=== PATIENT | female | born 1995 | race Caucasian/White ===

== ENCOUNTER 2025-05-06 08:42 | Emergency (ER) | payer OTHER, SELFPAY ==
[2025-05-06] VITALS (7 sets, daily range): BP systolic 110–122; BP diastolic 66–80; PULSE 70–95; RESP 16–18; TEMP 36.7; O2SAT 98; BMI 26.6
--- NOTE | ~2025-05-06 | XR_ITS ---
EXAMINATION: XR RIBS, RIGHT CLINICAL INFORMATION: pain COMPARISON: None available. TECHNIQUE: 3 views of the right ribs were obtained. FINDINGS: Lungs are clear. No consolidation, pneumothorax, or pleural effusion. The cardiomediastinal silhouette and pulmonary vasculature are normal. There is a subtle fracture of the right lateral ninth rib. No additional fractures identified. XR/XR ribs RT min 3V w CXR1V IMPRESSION: Subtle fracture of the right lateral ninth rib. Electronically signed by: Dylan Garza MD 05/06/2025 09:47 AM EDT
--- NOTE | 2025-05-06 08:43 | ECG_ITS ---
Test Reason : CP Blood Pressure : */* mmHG Vent. Rate : 85 BPM Atrial Rate : 85 BPM P-R Int : 150 ms QRS Dur : 72 ms QT Int : 362 ms P-R-T Axes : 63 63 62 degrees QTcB Int : 430 ms Normal sinus rhythm Normal ECG No previous ECGs available Referred By: Generic ED Physician Electronically Signed By: Scott Goodman
--- NOTE | 2025-05-06 09:01 | ED_ITS ---
HPI - Chest Pain General Chief Complaint: Chest Pain Stated Complaint: CP, passed out t-1. Time Seen by Provider: 05/06/25 08:45 Source: patient and old records reviewed Mode of arrival: ambulatory Limitations: no limitations History of Present Illness ED Provider: ESE COMBS narrative: 29 yo female with no PMH other than she notes about a year ago she passed out but did fine after. Yesterday she was with her brother having a normal conversation she started to feel sweaty and weird like she would pass out. She tried to get up but then ended up syncopizing. He caught her. She did not have shaking movements, no incontinence and no tongue biting. She notes it took her a bit to wake up. She has no hx of seizures. She notes since then she feels a kind if slight pain in the R chest. She has no n/v/, dyspnea. Her brother caught her when she passed out. She has no recent travel or procedures but she does note she uses a nexplanon. She has no heavy periods. No fam hx of sudden cardiac . She does feel she is bruising easier. She has no GIB symptoms or infectious symptoms. MD complaint: chest pain and other (syncope) Onset (ago): day(s) (1) Timing of current episode: constant Prior episodes: No Onset: other Pain location: right chest Pain radiation: none Severity: mild Quality: aching Relieving factors: nothing Exacerbating factors: nothing Context: other Treatment prior to arrival: none Related Data Previous Rx's ?Medication ?Instructions ?Recorded cyclobenzaprine 10 mg tablet 10 mg PO TID PRN muscle s pasm #20 05/06/25 tabs ibuprofen 600 mg tablet 600 mg PO Q6H PRN pain #30 t abs 05/06/25 lidocaine 5 % topical patch 1 patch topical DAILY #30 ea 05/06/25 Allergies Allergy/AdvReac Type Severity Reaction Status Date / Time No Known Allergies Allergy Verified 05/06/25 08:57 Review of Systems 2 Review of Systems: Constitutional : No Weight loss, No Fever, No Chills ENT/Mouth : No sore throat, No Rhinorrhea Eyes: No Eye Pain, No Swelling Cardiovascular : pos Chest Pain,no SOB, no Dyspnea on Exertion, No Orthopnea, No Edema, No Palpitations, pos syncope Respiratory : No Cough, No Sputum Gastrointestinal : pos Nausea, No Vomiting, No Diarrhea, No abdominal Pain, No Hematochezia, No Melena Genitourinary : No Dysuria, No Urinary Frequency Musculoskeletal : No joint pain, No Myalgias, No Joint Swelling Skin : No Skin Lesions, No rash Neuro : No Weakness, No Numbness, No Dizziness, No Headache All other systems reviewed and are negative [facility] Past Medical History Attestation statement: The following information was validated with the patient. Medical History No pertinent past medical history Social History Social History (Updated 05/06/25 @ 09:10 by Sara Meng DO) Patient Tobacco Use Status: Never used Tobacco Advance Directives: No Advance Directives Information Provided: Yes Physical Exam 2 Vital Signs: Vital Signs: Last Vital Signs Temp 98.1 F 05/06/25 08:55 Pulse 87 05/06/25 09:38 Resp 18 05/06/25 08:55 BP 118/77 05/06/25 09:38 Pulse Ox 98 05/06/25 08:55 O2 Del Method Room Air 05/06/25 08:55 BMI result Body Mass Index 26.6 Appearance: Alert. Oriented X3. No acute distress. Eyes: Pupils equal, round and reactive to light. ENT: Pharynx normal. Neck: Normal inspection. Neck supple. CVS: Normal heart rate and rhythm. Pulses normal. Respiratory: No respiratory distress. Breath sounds normal. Abdomen: Soft and nontender. Skin: Skin warm and dry. Normal skin color. Normal skin turgor. Extremities: No lower extremity edema. No calf ttp Neuro: Oriented X 3. No motor deficit. No sensory deficit. CN2-12 intact Medical Decision Making Medical Decision Making MDM Narrative: 29 yo female with no PMH here with c/o syncope yesterday with preceding feeling of passing out. She did not have a seizure. She then woke up with R sided chest pain but denies trauma. At this time will need labs, trop x 1, EKG, rib xray, ddimer, ortho VS. If negative would DC home. She has no risk factors for cardiac ds/issues. Differential Diagnosis Differential Diagnoses: The differential diagnosis associated with the presentation includes orthostatics, anemia, dehydration, vasovagal syncope, arrhythmia less likely Admission/Observation Consideration of admission/observation: Escalation of care including admission/observation considered work up reassuring stable for DC suspect 9th rib fracture after brother caught her Lab Data MDM Lab Attestation statement: I reviewed the patient's lab results. 05/06/25 09:06 Labs: Lab Results 05/06/25 Range/Units 09:06 WBC 4.6 L (4.8-10.8) X10*3/uL RBC 4.10 L (4.20-5.50) X10*6/uL Hgb 12.6 (12.0-16.0) g/dl Hct 36.2 L (37.0-47.0) % MCV 88.3 (80.0-98.0) fL MCH 30.7 (27.0-33.0) pg MCHC 34.8 (31.0-35.0) g/dl RDW 11.9 (11.0-16.0) % Plt Count 202 (160-400) X10*3/uL MPV 10.6 (9.4-12.3) fL Immature Gran % (Auto) 0.2 (0.0-0.4) % Neut % (Auto) 44.5 L (45-73) % Lymph % (Auto) 45.0 H (20-40) % [place] % (Auto) 7.9 (2-11) % Eos % (Auto) 1.3 (0-4) % Baso % (Auto) 1.1 (0-2) % Lymph # (Auto) 2.1 (1.2-4.9) X10*3/uL [place] # (Auto) 0.4 (0.1-1.2) X10*3/uL Eos # (Auto) 0.1 (0.0-0.4) X10*3/uL Baso # (Auto) 0.1 (0.0-0.2) X10*3/uL Abs Immat Gran (auto) 0.01 (0.00-0.03) X10*3/uL Absolute Neuts (auto) 2.0 (2.0-8.3) x10*3/uL Absolute Nucleated RBC 0.000 (0.0-0.012) X10*3/uL Nucleated RBC % (auto) 0.0 (0.0-0.2) /100WBC D-Dimer High Sensitivty < 150 NG/ML Troponin I High Sens < 2.7 (<3.5-17.0) ng/L Beta HCG, Quant < 2 mIU/mL Independent Interpretation I performed an independent interpretation of an: EKG and Plain X-Ray (9th rib fx) Interpretation: Rate: 85 Rhythm: NSR [place]: normal Normal P waves. Normal FELA. Normal QRS complex. ST T wave : normal no RENETTA qTC: 430 prior studies: no acute ischemia The study has been interpreted contemporaneously by me. Radiology Impression Discussion of test interpretation with radiology: I have reviewed the radiologist's reading. External Record Review External record reviewed: Outpatient record Prescription Management I considered prescription management with: Pain Medication Discharge Plan Discharge Clinical Impression: Atypical chest pain Fracture of rib Qualifiers: Encounter type: initial encounter Rib fracture type: single rib Fracture type: closed Laterality: right Qualified Code(s): S22.31XA - Fracture of one rib, right side, initial encounter for closed fracture Syncope Qualifiers: Syncope type: unspecified Qualified Code(s): R55 - Syncope and collapse Patient Disposition: Home, Self-Care Instructions: Chest Pain (ED), Rib Fracture (ED), Syncope (ED) Additional Instructions: labs reassuring EKG normal normal tests for heart and blood clots your blood pressure and heart rate were normal when you were standing you have a broken rib on the right lateral rib 9th this will take time to heal please monitor for fevers, worsening pain, cough, difficulty breathing. no lifting more than 20lbs for 3 weeks XR/XR ribs RT min 3V w CXR1V IMPRESSION: Subtle fracture of the right lateral ninth rib. Prescriptions: New cyclobenzaprine 10 mg tablet 10 mg PO TID PRN (Reason: muscle spasm) Qty: 20 0RF lidocaine 5 % adhesive patch,medicated 1 patch topical DAILY Qty: 30 0RF Rx Instructions: leave on most painful area for up to 12 hrs ibuprofen 600 mg tablet 600 mg PO Q6H PRN (Reason: pain) Qty: 30 0RF Stand Alone Forms: Work/School Release Print Language: Uzbek
[2025-05-06 09:10] LABS: MANUAL DIFF FLAG NO
[2025-05-06 09:13] LABS: Hematocrit 36.2 % (37.0-47.0); Hemoglobin 12.6 g/dl (12.0-16.0); Imm Gran Abs Auto 0.01 X10*3/uL (0.00-0.03); Imm Gran Pct Auto 0.2 % (0.0-0.4); Lymphocytes Absolute Auto 2.1 X10*3/uL (1.2-4.9); Mean Corpuscular HGB Conc 34.8 g/dl (31.0-35.0); Mean Corpuscular Hemoglobin 30.7 pg (27.0-33.0); Mean Corpuscular Volume 88.3 fL (80.0-98.0); NRBC Abs Auto 0.000 X10*3/uL (0.0-0.012); NRBC Pct Auto 0.0 /100WBC (0.0-0.2); Platelet Count 202 X10*3/uL (160-400); Red Blood Count 4.10 X10*6/uL (4.20-5.50); White Blood Count 4.6 X10*3/uL (4.8-10.8)
[2025-05-06 09:33] LABS: Troponin-I High Sensitivity < 2.7 ng/L (<3.5-17.0)
[2025-05-06 09:43] LABS: D Dimer High Sensitivity < 150 NG/ML
[2025-05-06 10:20] LABS: Alanine Aminotransferase 17 U/L (0-31); Albumin Level 4.8 g/dL (3.5-5.0); Alkaline Phosphatase 47 U/L (39-117); Anion Gap 14 (12-20); Aspartate Amino Transferase 30 U/L (5-31); Blood Urea Nitrogen 11 mg/dL (9-16); Calcium 9.3 mg/dL (8.4-10.2); Carbon Dioxide 20 mmol/L (22-29); Chloride 109 mmol/L (96-108); Creatinine Clr Calc Pharmacy 116.7; Estimated Glomerular Filt Rate > 60; Magnesium 2.2 mg/dL (1.6-2.6); Potassium 3.8 mmol/L (3.3-5.1); Sodium 139 mmol/L (135-145); Total Protein 7.3 g/dL (6.5-8.0)
== END 2025-05-06 10:56 | disposition home or self-care (01) ==
PROVIDERS: Emergency Provider Emergency Medicine
DX: S22.31XA Fracture of one rib, right side, initial encounter for closed fracture (principal); R07.89 Other chest pain; R55 Syncope and collapse; X58.XXXA Exposure to other specified factors, initial encounter; Y93.9 Activity, unspecified; Y92.9 Unspecified place or not applicable; Y99.8 Other external cause status
CPT/HCPCS: 36415; 71101; 80053; 83735; 84484; 84702; 85025; 85379; 93005; 99283; 99284

== ENCOUNTER → 2025-05-06 08:43 | Outpatient (BNV) | payer OTHER, SELFPAY | PROVIDERS: Emergency Provider Emergency Medicine; Visit Provider Internal Medicine Cardiovascular Disease | DX: R07.89 Other chest pain (principal) | CPT/HCPCS: 93010 ==

== ENCOUNTER → 2025-05-06 08:59 | Outpatient (BNV) | payer OTHER, SELFPAY | PROVIDERS: Emergency Provider Emergency Medicine; Visit Provider Radiology Diagnostic Radiology | DX: S22.31XA Fracture of one rib, right side, initial encounter for closed fracture (principal) | CPT/HCPCS: 71101 ==